=== PATIENT | female | born 1980 | race Hispanic/Latino ===

== ENCOUNTER 2020-01-24 16:34 | Emergency (ER) | payer MEDICARE, SELFPAY ==
[2020-01-24 18:45] LABS: Amphetamine Screen,Urine Negative; Benzodiazepines Screen,Urine Negative; Cocaine Screen,Urine Negative; Methadone Screen,Urine Negative; Opiate Screen,Urine Negative
[2020-01-24 18:57] LABS: Cannabinoid Screen,Urine Positive
[2020-01-24 19:02] LABS: Bacteria,Urine 1+ /HPF (Negative); Bilirubin,Urine NEG (Negative); Blood,Urine SM (Negative); Color,Urine Colorless (Yellow); Protein,Urine <15 mg/dL mg/dL (Negative); Urobilinogen,Urine < 2.0 mg/dL (<2.0)
[2020-01-24 19:10] LABS: Basophils # (Auto) 0.1 K/mm3 (0.0-0.1); Basophils % (Auto) 1.1 % (0.0-1.8); Eosinophils # (Auto) 0.2 K/mm3 (0.0-0.4); Eosinophils % (Auto) 1.7 % (0.0-4.3); Hematocrit 45.8 % (30.3-42.9); Lymphocytes # (Auto) 1.6 K/mm3 (1.2-5.4); Lymphocytes % (Auto) 15.6 % (13.4-35.0); Mean Corpuscular HGB Conc 35 % (30-34); Mean Corpuscular Volume 93 fl (79-97); Monocytes # (Auto) 0.7 K/mm3 (0.0-0.8); Monocytes % (Auto) 7.1 % (0.0-7.3); Platelet Count 285 K/mm3 (140-440); Red Blood Count 4.91 M/mm3 (3.65-5.03); Red Cell Distribution Width 13.1 % (13.2-15.2)
[2020-01-24 19:20] LABS: BUN/Creatinine Ratio 9; Blood Urea Nitrogen 8 mg/dL (7-17); Calcium 9.4 mg/dL (8.4-10.2); Hemolysis Index 35
--- NOTE | 2020-01-24 20:30 | Emergency Department Report ---
ED General Adult HPI - General Chief complaint: Psych Stated complaint: MENTAL HEALTH PUI?: No Time Seen by Provider: 01/24/20 20:29 Source: patient, RN notes reviewed, old records reviewed Mode of arrival: Ambulatory Limitations: No Limitations - History of Present Illness Initial comments: The patient was evaluated in the emergency department for symptoms described in the history of present illness. He/she was evaluated in the context of the global COVID-19 pandemic, which necessitated consideration that the patient might be at risk for infection with the virus that causes COVID-19. Institutional protocols and algorithms that pertain to the evaluation of patients at risk for COVID-19 are in a state of rapid change based on information released by regulatory bodies including the CDC and federal and state organizations. These policies and algorithms were followed during the patient's care in the emergency department. Please note that these policies, procedures and recommendations changed on a rapid basis. Patient is a 40-year-old female. Her past medical history includes type 2 diabetes, seizure, hypothyroidism, dyslipidemia, obesity, hepatitis C. She ran out of her medications approximately 2 months ago. She presents to the ER with a request for medical clearance for psychiatric placement. She denies physical pain. She denies loss of taste, loss of smell, and dysuria. She states that she was suicidal. She states she attempted to overdose approximately 24 hours ago, on cough syrup. She states she is having hallucinations. She states her symptoms are constant. She states that she resides with her boyfriend, who also has psychiatric disease, and indicates that she is "sometimes a cutter." She states her symptoms at this time are constant. They are painless. They do not radiate anywhere. She does not describe exacerbating or relieving factors. She states that she believes her blood sugar is high, and was not referred to the emergency room "for medical clearance." -: Gradual Consistency: constant Improves with: none Worsens with: none - Related Data Home Medications Medication Instructions Recorded Confirmed Last Taken Buprenorphine HCl/Naloxone HCl 4 mg PO QID 03/06/14 03/06/14 03/06/14 [Suboxone 4 mg-1 mg SL Film] Escitalopram Oxalate [Lexapro] 20 mg PO QHS 03/06/14 03/06/14 03/05/14 Gabapentin 400 mg PO QID 03/06/14 03/06/14 03/06/14 Levothyroxine [Synthroid] 100 mcg PO DAILY 03/06/14 03/06/14 03/06/14 Lurasidone HCl [Latuda] 120 mg PO QPM 03/06/14 03/06/14 03/05/14 Propranolol HCl 20 mg PO BID 03/06/14 03/06/14 03/06/14 hydrOXYzine PAMOATE [Vistaril] 50 mg PO Q6HR PRN 03/06/14 03/06/14 03/06/14 metFORMIN [Glucophage] 500 mg PO BID 03/06/14 03/06/14 03/05/14 Previous Rx's Medication Instructions Recorded Last Taken Type Gentamicin 0.3% Ophth Soln 2 drops OP Q4H #1 bottle 03/06/14 Unknown Rx Diphenhydramine HCl [Benadryl 25 mg PO Q8HR #15 tablet 03/09/15 Unknown Rx Allergy TAB] Ondansetron [Zofran Odt] 4 mg PO Q8H #10 tab.rapdis 03/09/15 Unknown Rx Triamcinolone 0.1% [Kenalog 0.1% 1 applic TP TID #1 tube 03/09/15 Unknown Rx CREAM] Allergies Allergy/AdvReac Type Severity Reaction Status Date / Time morphine Allergy Hives Verified 03/06/14 11:38 Sulfa (Sulfonamide Allergy Hives Verified 03/06/14 11:38 Antibiotics) vancomycin Allergy Vomiting Verified 03/06/14 11:38 ED Review of Systems ROS: Stated complaint: MENTAL HEALTH Other details as noted in HPI Comment: All other systems reviewed and negative Respiratory: denies: cough Genitourinary: denies: dysuria Psychiatric: anxiety, depression, auditory hallucinations, visual hallucinations, suicidal thoughts. denies: homicidal thoughts ED Past Medical Hx - Past Medical History Previous Medical History?: Yes Hx Hypertension: Yes Hx Diabetes: Yes Hx Psychiatric Treatment: Yes (suicidal attempt, psych eval) Additional medical history: hypothyroid - Surgical History Past Surgical History?: Yes Hx Cholecystectomy: Yes Additional Surgical History: hysterectomy - Social History Smoking Status: Current Every Day Smoker Substance Use Type: Heroin, Marijuana - Medications Home Medications: Home Medications Medication Instructions Recorded Confirmed Last Taken Type Buprenorphine HCl/Naloxone HCl 4 mg PO QID 03/06/14 03/06/14 03/06/14 History [Suboxone 4 mg-1 mg SL Film] Escitalopram Oxalate [Lexapro] 20 mg PO QHS 03/06/14 03/06/14 03/05/14 History Gabapentin 400 mg PO QID 03/06/14 03/06/14 03/06/14 History Gentamicin 0.3% Ophth Soln 2 drops OP Q4H #1 bottle 03/06/14 Unknown Rx Levothyroxine [Synthroid] 100 mcg PO DAILY 03/06/14 03/06/14 03/06/14 History Lurasidone HCl [Latuda] 120 mg PO QPM 03/06/14 03/06/14 03/05/14 History Propranolol HCl 20 mg PO BID 03/06/14 03/06/14 03/06/14 History hydrOXYzine PAMOATE [Vistaril] 50 mg PO Q6HR PRN 03/06/14 03/06/14 03/06/14 History metFORMIN [Glucophage] 500 mg PO BID 03/06/14 03/06/14 03/05/14 History Diphenhydramine HCl [Benadryl 25 mg PO Q8HR #15 tablet 03/09/15 Unknown Rx Allergy TAB] Ondansetron [Zofran Odt] 4 mg PO Q8H #10 tab.rapdis 03/09/15 Unknown Rx Triamcinolone 0.1% [Kenalog 0.1% 1 applic TP TID #1 tube 03/09/15 Unknown Rx CREAM] ED Physical Exam - General Limitations: No Limitations General appearance: alert, anxious, obese - Head Head exam: Present: atraumatic, normocephalic - Eye Eye exam: Present: normal appearance, EOMI. Absent: nystagmus - ENT ENT exam: Present: normal exam, normal orophraynx, mucous membranes moist, normal external ear exam - Neck Neck exam: Present: normal inspection, full ROM. Absent: tenderness, meningismus - Respiratory Respiratory exam: Present: normal lung sounds bilaterally. Absent: respiratory distress, wheezes, rales, rhonchi, stridor, decreased breath sounds - Cardiovascular Cardiovascular Exam: Present: regular rate, normal rhythm, normal heart sounds. Absent: bradycardia, tachycardia, irregular rhythm, systolic murmur, diastolic murmur, rubs, gallop - GI/Abdominal GI/Abdominal exam: Present: soft. Absent: distended, tenderness, guarding, rebound, rigid, pulsatile mass - Extremities Exam Extremities exam: Present: normal inspection, full ROM, other (2+ pulses noted in the bilateral upper and lower extremities. There is no palpable cord. negative Homans sign. Muscular compartments are soft. The pelvis is stable.). Absent: pedal edema, calf tenderness - Back Exam Back exam: Present: normal inspection, full ROM. Absent: tenderness, CVA tenderness (R), CVA tenderness (L), paraspinal tenderness, vertebral tenderness - Neurological Exam Neurological exam: Present: alert, oriented X3, normal gait, other (No facial droop. Tongue midline. Extraocular movements intact bilaterally. Facial sensation intact to light touch in V1, V2, V3 distribution bilaterally. 5 and a 5 strength in 4 extremities. Sensation intact to light touch in 4 extremities.). Absent: motor sensory deficit - Psychiatric Psychiatric exam: Present: suicidal ideation. Absent: homicidal ideation - Skin Skin exam: Present: warm, dry, intact, normal color. Absent: rash ED Course Vital Signs 01/24/20 17:46 Temperature 98.3 F Pulse Rate 123 H Respiratory 16 Rate Blood Pressure 150/91 O2 Sat by Pulse 96 Oximetry - Reevaluation(s) Reevaluation #1: 01/24/20 21:45 Differential diagnosis, including but not limited to: Medication noncompliance, suicidality, medical clearance for psychiatric placement, hyperglycemia Assessment and plan: 40-year-old female presenting with a painless complaint of medical clearance for psychiatric placement. She states that she is suicidal and having hallucinations. However, she does demonstrate a fairly rational and lucid thought process. Uncertain if patient is presenting for the purposes of secondary gain. However, given her articulation of suicidality with [place] llucinations, and report of overdose, patient is placed on 1013 hold. Psychiatric consultation is requested, and inpatient psychiatric hospitalization is recommended. Patient presented me with a list of her medications, and I reconciled and continued her Metformin, Synthroid, glipizide, Keppra, Lipitor, Trileptal. I will defer to the psychiatric team to make recommendations as to her psychiatric medications. Her tachycardia resolved, her hypoglycemia resolved. Her physical exam is otherwise benign and unremarkable. Covid testing is ordered to facilitate psychiatric placement, although I do not clinically suspect symptomatic Covid at this time. At this point in time, patient does not appear to have an immediate medical contraindication to psychiatric admission, evaluation, consultation and placement. I discussed this plan of care with the patient, who verbalized understanding, who is amenable to this plan of care. ED Medical Decision Making - Lab Data Result diagrams: 01/24/20 17:59 01/24/20 17:59 Vital Signs 01/24/20 17:46 Temperature 98.3 F Pulse Rate 123 H Respiratory 16 Rate Blood Pressure 150/91 O2 Sat by Pulse 96 Oximetry Lab Results 01/24/20 01/24/20 01/24/20 Range/Units 17:59 17:59 17:59 WBC (4.5-11.0) K/mm3 RBC (3.65-5.03) M/mm3 Hgb (10.1-14.3) gm/dl Hct (30.3-42.9) % MCV (79-97) fl MCH (28-32) pg MCHC (30-34) % RDW (13.2-15.2) % Plt Count (140-440) K/mm3 Lymph % (Auto) (13.4-35.0) % [place] % (Auto) (0.0-7.3) % Eos % (Auto) (0.0-4.3) % Baso % (Auto) (0.0-1.8) % Lymph # (Auto) (1.2-5.4) K/mm3 [place] # (Auto) (0.0-0.8) K/mm3 Eos # (Auto) (0.0-0.4) K/mm3 Baso # (Auto) (0.0-0.1) K/mm3 Seg Neutrophils % (40.0-70.0) % Seg Neutrophils # (1.8-7.7) K/mm3 Sodium 133 L (137-145) mmol/L Potassium 4.1 (3.6-5.0) mmol/L Chloride 98.4 (98-107) mmol/L Carbon Dioxide 19 L (22-30) mmol/L Anion Gap 20 mmol/L BUN 8 (7-17) mg/dL Creatinine 0.9 (0.6-1.2) mg/dL Estimated GFR > 60 ml/min BUN/Creatinine Ratio 9 % Glucose 374 H (65-100) mg/dL Calcium 9.4 (8.4-10.2) mg/dL Urine Color (Yellow) Urine Turbidity (Clear) Urine pH (5.0-7.0) Ur Specific [place] (1.003-1.030) Urine Protein (Negative) mg/dL Urine Glucose (UA) (Negative) mg/dL Urine Ketones (Negative) mg/dL Urine Blood (Negative) Urine Nitrite (Negative) Urine Bilirubin (Negative) Urine Urobilinogen (<2.0) mg/dL Ur Leukocyte Esterase (Negative) Urine WBC (Auto) (0.0-6.0) /HPF Urine RBC (Auto) (0.0-6.0) /HPF U Epithel Cells (Auto) (0-13.0) /HPF Urine Bacteria (Auto) (Negative) /HPF Salicylates < 0.3 L (2.8-20.0) mg/dL Urine Opiates Screen Urine Methadone Screen Acetaminophen 5.0 L (10.0-30.0) ug/mL Ur Barbiturates Screen Ur Phencyclidine Scrn Ur Amphetamines Screen U Benzodiazepines Scrn Urine Cocaine Screen U Marijuana (THC) Screen Drugs of Abuse Note Plasma/Serum Alcohol (0-0.07) % 01/24/20 01/24/20 01/24/20 Range/Units 17:59 17:59 18:01 WBC 10.3 (4.5-11.0) K/mm3 RBC 4.91 (3.65-5.03) M/mm3 Hgb 16.0 H (10.1-14.3) gm/dl Hct 45.8 H (30.3-42.9) % MCV 93 (79-97) fl MCH 33 H (28-32) pg MCHC 35 H (30-34) % RDW 13.1 L (13.2-15.2) % Plt Count 285 (140-440) K/mm3 Lymph % (Auto) 15.6 (13.4-35.0) % [place] % (Auto) 7.1 (0.0-7.3) % Eos % (Auto) 1.7 (0.0-4.3) % Baso % (Auto) 1.1 (0.0-1.8) % Lymph # (Auto) 1.6 (1.2-5.4) K/mm3 [place] # (Auto) 0.7 (0.0-0.8) K/mm3 Eos # (Auto) 0.2 (0.0-0.4) K/mm3 Baso # (Auto) 0.1 (0.0-0.1) K/mm3 Seg Neutrophils % 74.5 H (40.0-70.0) % Seg Neutrophils # 7.7 (1.8-7.7) K/mm3 Sodium (137-145) mmol/L Potassium (3.6-5.0) mmol/L Chloride (98-107) mmol/L Carbon Dioxide (22-30) mmol/L Anion Gap mmol/L BUN (7-17) mg/dL Creatinine (0.6-1.2) mg/dL Estimated GFR ml/min BUN/Creatinine Ratio % Glucose (65-100) mg/dL Calcium (8.4-10.2) mg/dL Urine Color Colorless (Yellow) Urine Turbidity Slightly-cloudy (Clear) Urine pH 6.0 (5.0-7.0) Ur Specific [place] 1.002 L (1.003-1.030) Urine Protein <15 mg/dl (Negative) mg/dL Urine Glucose (UA) >=500 (Negative) mg/dL Urine Ketones Neg (Negative) mg/dL Urine Blood Sm (Negative) Urine Nitrite Neg (Negative) Urine Bilirubin Neg (Negative) Urine Urobilinogen < 2.0 (<2.0) mg/dL Ur Leukocyte Esterase Neg (Negative) Urine WBC (Auto) 1.0 (0.0-6.0) /HPF Urine RBC (Auto) 2.0 (0.0-6.0) /HPF U Epithel Cells (Auto) 8.0 (0-13.0) /HPF Urine Bacteria (Auto) 1+ (Negative) /HPF Salicylates (2.8-20.0) mg/dL Urine Opiates Screen Urine Methadone Screen Acetaminophen (10.0-30.0) ug/mL Ur Barbiturates Screen Ur Phencyclidine Scrn Ur Amphetamines Screen U Benzodiazepines Scrn Urine Cocaine Screen U Marijuana (THC) Screen Drugs of Abuse Note Plasma/Serum Alcohol < 0.01 (0-0.07) % 01/24/20 Range/Units 18:01 WBC (4.5-11.0) K/mm3 RBC (3.65-5.03) M/mm3 Hgb (10.1-14.3) gm/dl Hct (30.3-42.9) % MCV (79-97) fl MCH (28-32) pg MCHC (30-34) % RDW (13.2-15.2) % Plt Count (140-440) K/mm3 Lymph % (Auto) (13.4-35.0) % [place] % (Auto) (0.0-7.3) % Eos % (Auto) (0.0-4.3) % Baso % (Auto) (0.0-1.8) % Lymph # (Auto) (1.2-5.4) K/mm3 [place] # (Auto) (0.0-0.8) K/mm3 Eos # (Auto) (0.0-0.4) K/mm3 Baso # (Auto) (0.0-0.1) K/mm3 Seg Neutrophils % (40.0-70.0) % Seg Neutrophils # (1.8-7.7) K/mm3 Sodium (137-145) mmol/L Potassium (3.6-5.0) mmol/L Chloride (98-107) mmol/L Carbon Dioxide (22-30) mmol/L Anion Gap mmol/L BUN (7-17) mg/dL Creatinine (0.6-1.2) mg/dL Estimated GFR ml/min BUN/Creatinine Ratio % Glucose (65-100) mg/dL Calcium (8.4-10.2) mg/dL Urine Color (Yellow) Urine Turbidity (Clear) Urine pH (5.0-7.0) Ur Specific [place] (1.003-1.030) Urine Protein (Negative) mg/dL Urine Glucose (UA) (Negative) mg/dL Urine Ketones (Negative) mg/dL Urine Blood (Negative) Urine Nitrite (Negative) Urine Bilirubin (Negative) Urine Urobilinogen (<2.0) mg/dL Ur Leukocyte Esterase (Negative) Urine WBC (Auto) (0.0-6.0) /HPF Urine RBC (Auto) (0.0-6.0) /HPF U Epithel Cells (Auto) (0-13.0) /HPF Urine Bacteria (Auto) (Negative) /HPF Salicylates (2.8-20.0) mg/dL Urine Opiates Screen Negative Urine Methadone Screen Negative Acetaminophen (10.0-30.0) ug/mL Ur Barbiturates Screen Negative Ur Phencyclidine Scrn Negative Ur Amphetamines Screen Negative U Benzodiazepines Scrn Negative Urine Cocaine Screen Negative U Marijuana (THC) Screen Positive Drugs of Abuse Note Disclamer Plasma/Serum Alcohol (0-0.07) % - EKG Data -: EKG Interpreted by Me EKG shows normal: sinus rhythm Rate: normal - EKG Data 01/24/20 21:45 Sinus rhythm, 84 bpm, normal axis, QTC 442 ms, PVCs, [place] interval within normal limits. The EKG is abnormal. There is no chest pain, the EKG is not a STEMI Critical care attestation.: If time is entered above; I have spent that time in minutes in the direct care of this critically ill patient, excluding procedure time. ED Disposition Clinical Impression: Hyperglycemia, Noncompliance with medication regimen, Obesity, Medical clearance for psychiatric admission, Suicidal ideation Disposition: [id number]/TX-[id number] PSY HOSP/PSY UNIT Is pt being admited?: No Does the pt Need Aspirin: No Condition: Good Referrals: PRIMARY CARE, [Primary Care Provider] - 3-5 Days
[2020-01-24] MEDS ORDERED: HALOPERIDOL LACTATE 5 MG/1 ML INJ IM PRN (20:40)
[2020-01-24] MEDS ORDERED: INSULIN REGULAR, HUMAN 100 UNIT/ML 3ML VIAL IV ONE (20:40)
[2020-01-24] MEDS ORDERED: SODIUM CHLORIDE 0.9% 1000 ML 1,000 ML IV ONE (20:40)
[2020-01-24 20:48] LABS: HCG Qualitative,Urine Negative (Negative)
[2020-01-24] MEDS ORDERED: INSULIN REGULAR, HUMAN 100 UNITS/1 ML ONE (21:00)
[2020-01-24] MEDS: LORazepam 2 MG/ML VIAL IM PRN (22:15)
[2020-01-24] MEDS: metFORMIN 500 MG TAB PO SCH (22:26)
[2020-01-24] MEDS: OXcarbazepine 150 MG TAB PO SCH (22:27)
[2020-01-25] MEDS: LORazepam 2 MG/ML VIAL IM PRN ×2 (07:59→19:17)
[2020-01-25] MEDS: LEVOTHYROXINE 88 MCG TAB PO SCH (08:19)
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
[2020-01-25] MEDS: glipiZIDE 10 MG TAB PO SCH (09:50)
[2020-01-25] MEDS: OXcarbazepine 150 MG TAB PO SCH ×2 (09:50→22:43)
[2020-01-25] MEDS: metFORMIN 500 MG TAB PO SCH ×2 (09:51→22:42)
[2020-01-25] MEDS: levETIRAcetam 500 MG TAB PO SCH (09:51)
[2020-01-25] MEDS: DULoxetine 30 MG CAP PO SCH (10:32)
[2020-01-25 17:13] LABS: Alanine Aminotransferase 16 units/L (7-56); Albumin 3.9 g/dL (3.9-5); BUN/Creatinine Ratio 11; Blood Urea Nitrogen 9 mg/dL (7-17); Calcium 9.2 mg/dL (8.4-10.2); Hemolysis Index 13
[2020-01-26] MEDS: LEVOTHYROXINE 88 MCG TAB PO SCH (07:56)
[2020-01-26] MEDS: LORazepam 2 MG/ML VIAL IM PRN (07:56)
[2020-01-26 09:44] VITALS: BP 103/69
[2020-01-26] MEDS: glipiZIDE 10 MG TAB PO SCH (11:24)
[2020-01-26] MEDS: DULoxetine 30 MG CAP PO SCH (11:25)
[2020-01-26] MEDS: levETIRAcetam 500 MG TAB PO SCH (11:25)
[2020-01-26] MEDS: metFORMIN 500 MG TAB PO SCH (11:25)
[2020-01-26] MEDS: OXcarbazepine 150 MG TAB PO SCH (11:29)
== END 2020-01-26 16:00 ==
LOC: ED 16:34
DX: E11.65 Type 2 diabetes mellitus with hyperglycemia (principal); E66.9 Obesity, unspecified; I10 Essential (primary) hypertension; R45.851 Suicidal ideations; E03.9 Hypothyroidism, unspecified; E78.5 Hyperlipidemia, unspecified; F17.200 Nicotine dependence, unspecified, uncomplicated; F12.90 Cannabis use, unspecified, uncomplicated; F11.90 Opioid use, unspecified, uncomplicated; Z91.14 Patient's other noncompliance with medication regimen; Z68.37 Body mass index [BMI] 37.0-37.9, adult; Z88.6 Allergy status to analgesic agent; Z90.49 Acquired absence of other specified parts of digestive tract; Z90.710 Acquired absence of both cervix and uterus; Z88.8 Allergy status to other drugs, medicaments and biological substances; Z88.2 Allergy status to sulfonamides; Z79.899 Other long term (current) drug therapy; Z00.8 Encounter for other general examination; Z20.828 Contact with and (suspected) exposure to other viral communicable diseases
CPT/HCPCS: 36415; 80048; 80053; 80307; 81001; 81025; 82550; 82962; 83735; 85025; 93005; 96360; 96361; 96372; 99284; A9270; J2060; J7030; U0003; 80320; G0480; J1815